=== PATIENT | male | born 2000 | race Caucasian/White ===

== ENCOUNTER 2019-04-25 11:28 | Outpatient (CLI) | payer OTHER, SELFPAY ==
--- NOTE | 2019-04-25 12:00 | DI.RAD_ITS ---
SYMPTOM/DIAGNOSIS: CHEST PAIN X 1 WEEK AND LEFT LOWER STERNAL CHEST PAIN PA AND LATERAL CHEST: There are no prior comparison exams. The cardiac and mediastinal contours have a normal appearance. The lungs are well inflated and clear. No pneumothorax, infiltrate or effusion is seen. No rib or spine fractures are identified. IMPRESSION: Negative chest x-ray.
== END 2019-04-25 11:48 ==
PROVIDERS: PCP Pediatrics; Visit Provider Pediatrics
DX: R07.89 Other chest pain (principal); R07.2 Precordial pain
CPT/HCPCS: 71046